=== PATIENT | female | born 1990 | race American Indian/Alaskan Native ===

== ENCOUNTER 2021-07-09 10:21 | Emergency (ER) | payer OTHER ==
[2021-07-09 10:27] VITALS: BP 110/62
--- NOTE | 2021-07-09 10:49 | Emergency Department Report ---
ED Female HPI - General Chief complaint: Medical Clearance Stated complaint: Time Seen by Provider: 07/09/21 10:31 Source: patient Mode of arrival: Ambulatory Limitations: No Limitations - History of Present Illness Initial comments: 31-year-old female presents to the ER today with concern of being after elective . Patient states that she found out she was in April 2021. She states that she had an elective around the middle of May. She states that she was prescribed a pill. She does not recall name of the pill. She states that she bled for about 2 to 3 days after taking the pill. She states that in June she did have a period, but it was rouge presser than normal and only lasted 2 to 3 days which is not typical for her menstrual cycles. She states that because of that she took a test at home last week and it was positive. She denies any vaginal bleeding since her last juan od. She denies any abdominal cramping. She denies any UTI symptoms, fever or chills. MD Complaint: other (possible after elective ) -: week(s) (1) - Related Data Allergies Allergy/AdvReac Type Severity Reaction Status Date / Time No Known Allergies Allergy Unverified 07/09/21 10:26 ED Review of Systems ROS: Stated complaint: Other details as noted in HPI Comment: All other systems reviewed and negative Constitutional: denies: chills, fever Eyes: denies: eye pain, eye discharge, vision change ENT: denies: ear pain, throat pain Respiratory: denies: cough, shortness of breath, SOB with exertion, SOB at rest, wheezing Cardiovascular: denies: chest pain, palpitations Gastrointestinal: denies: abdominal pain, nausea, diarrhea, constipation, hematemesis Genitourinary: denies: urgency, dysuria, frequency, hematuria, discharge, a bnormal menses, dyspareunia Musculoskeletal: denies: back pain, joint swelling, arthralgia Skin: denies: rash, lesions, change in color, change in hair/nails, pruritus Neurological: denies: headache, weakness, numbness, paresthesias, confusion, abnormal gait, vertigo Psychiatric: denies: anxiety, depression, visual hallucinations, homicidal thoughts ED Physical Exam - General Limitations: No Limitations General appearance: alert, in no apparent distress - Head Head exam: Present: atraumatic, normocephalic, normal inspection - Eye Eye exam: Present: normal appearance, PERRL, EOMI Pupils: Present: normal accommodation - ENT ENT exam: Present: normal exam, mucous membranes moist, TM's normal bilaterally - Neck Neck exam: Present: normal inspection, full ROM - Respiratory Respiratory exam: Present: normal lung sounds bilaterally. Absent: respiratory distress, wheezes, rales, rhonchi - Cardiovascular Cardiovascular Exam: Present: regular rate, normal rhythm, normal heart sounds - GI/Abdominal GI/Abdominal exam: Present: soft. Absent: distended, tenderness, guarding - Neurological Exam Neurological exam: Present: alert, oriented X3, CN II-XII intact, normal gait - Psychiatric Psychiatric exam: Present: normal affect, normal mood - Skin Skin exam: Present: intact ED Course Vital Signs 07/09/21 07/09/21 10:26 10:27 Temperature 97.8 F Pulse Rate 80 Respiratory 16 Rate Blood Pressure 110/62 O2 Sat by Pulse 100 Oximetry ED Medical Decision Making - Lab Data Result diagrams: 07/09/21 11:27 07/09/21 11:27 - Radiology Data Radiology results: report reviewed Patient Name: BOBO RED Gender: Female Date of : 1990 Referring Provider: SHELIA YUSUF Organization: [facility] Accession Number: [id number] Requested Date: July 09, 2021 12:52 Report Status: Final Requested Procedure: 1 Procedure Description: US OB >= 14 weeks Fetus Modality: US Findings Reporting MD: Sami Gutierres Dictation Time: July 09, 2021 14:12 [place] Head Wet Process: Not available Roofing Technician Date: OB ULTRASOUND >= 14 WEEKS FETUS INDICATION: Positive test after elective on May. Beta-hCG level 21,499 COMPARISON: None FINDINGS: A single gestation intrauterine is present with breech presentation. The placenta is anterior, grade 0 and free of the cervical os. heart tones measure 146 bpm. Amniotic fluid volume is subjectively normal, MAGDALENA was not measured. The intracranial structures, spine, four-chamber heart, diaphragm, umbilical cord, cord insertion, stomach, kidneys, and bladder show no sonographic abnormality. Biparietal diameter is 4.5 cm which equals 19 weeks 4 days. Head circumference is 17.5 cm which equals 20 weeks 0 days. Abdominal circumference is 15.5 cm which equals 20 weeks 5 days. Femur length is 3.2 cm which equals 20 weeks 0 days. Overall estimated sonographic age is 20 weeks 1 day. Clinical age: 15 weeks 0 days. HC/AC ratio: 1.1 Cephalic index: 77.2 Estimated weight 343 g IMPRESSION: Viable single intrauterine as described. No acute abnormality is noted. - Medical Decision Making OB ultrasound today confirms the patient is about 15 weeks and 0 days currently. Her labs are unremarkable. She has no abdominal pain, pelvic pain or any abnormal vaginal symptoms currently. Patient given a copy of her ultrasound report, and she will be given referral information to local [facility] if she do decide to keep this . Patient is overall well-appearing, nontoxic and not in any significant distress. Her vital signs are stable. Patient expressed understanding of instructions and agree with plan. Patient was stable at time of discharge. Critical care attestation.: If time is entered above; I have spent that time in minutes in the direct care of this critically ill patient, excluding procedure time. ED Disposition Clinical Impression: Second trimester Disposition: 01 HOME / SELF CARE / HOMELESS Is pt being admited?: No Does the pt Need Aspirin: No Condition: Stable Instructions: Second Trimester of , [id number] Additional Instructions: I recommend that you follow-up with the [facility] center discharge instructions to start care if you do decide to keep this . You can start taking vitamins from [id number]. Return to the ER if your symptoms worsens in any way Referrals: [facility] [Primary Care Provider] - 3-5 Days [facility] [Provider Group] - 3-5 Days Forms: Work/School Release Form(ED) Time of Disposition: 15:20
[2021-07-09 12:08] LABS: BUN/Creatinine Ratio 8; Blood Urea Nitrogen 3 mg/dL (7-17); Hemolysis Index 9
[2021-07-09 12:16] LABS: Basophils % (Auto) 0.5 % (0.0-1.8); Eosinophils # (Auto) 0.1 K/mm3 (0.0-0.4); Eosinophils % (Auto) 1.5 % (0.0-4.3); Hematocrit 36.3 % (30.3-42.9); Hemoglobin 11.7 gm/dl (10.1-14.3); Lymphocytes # (Auto) 1.5 K/mm3 (1.2-5.4); Lymphocytes % (Auto) 25.9 % (13.4-35.0); Mean Corpuscular HGB Conc 32 % (30-34); Mean Corpuscular Volume 89 fl (79-97); Monocytes # (Auto) 0.7 K/mm3 (0.0-0.8); Monocytes % (Auto) 13.3 % (0.0-7.3); Platelet Count 194 K/mm3 (140-440); Red Blood Count 4.07 M/mm3 (3.65-5.03); Red Cell Distribution Width 13.5 % (13.2-15.2)
--- NOTE | 2021-07-09 15:16 | Ultrasound Report ---
OB ULTRASOUND >= 14 WEEKS FETUS INDICATION: Positive test after elective on May. Beta-hCG level 21,499 COMPARISON: None FINDINGS: A single gestation intrauterine is present with breech presentation. The placenta is anteri or, grade 0 and free of the cervical os. heart tones measure 146 bpm. Amniotic fluid volume is subjectively normal, MAGDALENA was not measured. The intracranial structures, spine, four-chamber heart, diaphragm, umbilical cord, cord inserti on, stomach, kidneys, and bladder show no sonographic abnormality. Biparietal diameter is 4.5 cm which equals 19 weeks 4 days. Head circumference is 17.5 cm which equals 20 weeks 0 days. Abdominal circumference is 15.5 cm which equals 20 weeks 5 days. Femur length is 3.2 cm which equals 20 weeks 0 days. Overall estimated sonographic age is 20 weeks 1 day. Clinical age: 15 weeks 0 days. HC/AC ratio: 1.1 Cephalic index: 77.2 Estimated weight 343 g IMPRESSION: Viable single intrauterine as described. No acute abnormality is noted. Signer Name: Sami Gutierres Jr, MD Signed: 07/09/2021 3:12 PM Workstation Name: [id number]
== END 2021-07-09 15:38 | disposition home or self-care (01) ==
LOC: ED 10:21
DX: Z34.92 Encounter for supervision of normal pregnancy, unspecified, second trimester (principal)
CPT/HCPCS: 36415; 76805; 80048; 84702; 85025; 99284